=== PATIENT | male | born 1965 | race Hispanic/Latino ===

== ENCOUNTER 2017-05-17 19:58 | Emergency (ER) | payer BC ==
[2017-05-17 20:08] VITALS: BP 122/99; PULSE 80; RESP 15; TEMP 97.1; O2SAT 100
[2017-05-17] MEDS ORDERED: TDAP Vaccine 0.5 mL Syr IM ONE (20:28)
[2017-05-17] MEDS ORDERED: Lidocaine 2% w Epi 1:100,000 Inj IJ ONE (20:29)
--- NOTE | 2017-05-17 20:34 | ED PDOC ---
Upper Extremity Pain/Injury Chief Complaint (Provider): TERRELLE laceration History Per: Patient History/Exam Limitations: no limitations Onset/Duration Of Symptoms: Hrs Current Symptoms Are (Timing): Still Present Severity: Moderate Pain Scale Rating Of: 3 Elbow (Pic): 1 - Tenderness Exacerbating Factor(s): Nothing Additional Complaint(s): 51 y/o male with no significant medical history presenting to ED this evening with cc of falling as he was attempting to get out of the shower, landed on a wine glass, suffering a laceration to his left arm. Reports he was in the so he applied pressure on the site to help it to stop bleeding then wrapped his arm up and came to the emergency room. does not think any glass particles actually penetrated further and does not remember his last tetanus shot. Denies any numbness, tingling or pain . No other complaints otherwise <Elvira Menjivar - Last Filed: 05/17/17 22:57> <Cherrie Adams - Last Filed: 05/19/17 14:50> Time Seen by Provider: 05/17/17 20:14 Chief Complaint (Nursing): Upper Extremity Problem/Injury Supervising Attending Note - Supervising Attending Note The Documented history was done by the: Physician Clinical Systems Educator, Attending Physician The documented physical exam was done by the: Physician Clinical Systems Educator, Attending Physician The documented procedures were done by the: Physician Clinical Systems Educator (under my supervision) - Attestation: I have personally seen and examined this patient.: Yes I have fully participated in the care of the patient.: Yes I have reviewed all pertinent clinical information: Yes <Cherrie Adams - Last Filed: 05/19/17 14:50> Past Medical History Vital Signs: Last Vital Signs Temp 97.1 F L 05/17/17 20:04 Pulse 80 05/17/17 20:04 Resp 15 05/17/17 20:04 BP 122/99 H 05/17/17 20:04 Pulse Ox 100 05/17/17 20:04 - Medical History PMH: No Chronic Diseases - Family History Family History: States: No Known Family Hx - Social History Current smoker - smoking cessation education provided: Yes - Immunization History Hx Tetanus Toxoid Vaccination: No (Pt does not recall ) <Elvira Menjivar - Last Filed: 05/17/17 22:57> Vital Signs: Last Vital Signs Temp 97.1 F L 05/17/17 20:04 Pulse 80 05/17/17 20:04 Resp 15 05/17/17 20:04 BP 122/99 H 05/17/17 20:04 Pulse Ox 100 05/17/17 22:57 <BryanCherrie J - Last Filed: 05/19/17 14:50> - Allergies Allergies/Adverse Reactions: Allergies Allergy/AdvReac Type Severity Reaction Status Date / Time No Known Allergies Allergy Verified 05/17/17 20:08 Review of Systems Constitutional: Negative for: Fever, Malaise Cardiovascular: Negative for: Chest Pain, Light Headedness Respiratory: Negative for: Cough, Shortness of Breath Gastrointestinal: Negative for: Nausea, Abdominal Pain Skin: Negative for: Rash Neurological: Negative for: Weakness <Elvira Menjivar - Last Filed: 05/17/17 22:57> Physical Exam - Reviewed Vital Signs Reviewed: Yes - Physical Exam Appears: Positive for: No Acute Distress Skin: Positive for: Warm, Dry Cardiovascular/Chest: Positive for: Regular Rate, Rhythm. Negative for: Edema Respiratory: Positive for: Normal Breath Sounds. Negative for: Decreased Breath Sounds, Accessory Muscle Use Pulses-Carotid (L): 2+ Pulses-Radial (L): 2+ Pulses-Radial (R): 2+ Gastrointestinal/Abdominal: Positive for: Normal Exam, Bowel Sounds, Soft. Negative for: Tenderness Extremity: Positive for: Deformity, Other (about 8cm laceration on left LUE starting from elbow to upper forearm) DTR - Bicep (R): 2+ DTR - Bicep (L): 2+ Neurologic/Psych: Positive for: Alert, buffing wheel former automatic II-XII, Oriented. Negative for: Motor/Sensory Deficits <Elvira Menjivar - Last Filed: 05/17/17 22:57> - ECG O2 Sat by Pulse Oximetry: 100 - Radiology X-Ray: Interpreted by Dc X-Ray Interpretation: Other (no glass particles noted on xray ) <Elvira Menjivar - Last Filed: 05/17/17 22:57> Procedures - Time-Out Type of Procedure: laceration repair Site of Procedure: left forearm Correct Patient: Yes Correct Procedure: Yes Correct Site Marked: Yes Medication Recon: Yes Physician Name: Elvira Amezcuaoo - Laceration/Wound Repair Left Upper Arm Wound Length (cm): 8 Wound's Depth, Shape: superficial, irregular Wound Explored: no foreign body removed Irrigated w/ Saline (ccs): 20 Betadine Prep?: No Anesthesia: Lidocaine w/ Epi Volume Anesthetic (ccs): 20 Wound Debrided: minimal Wound Repaired With: Sutures Suture Size/Type: 5:0 Number of Sutures: 6 Layer Closure?: No Wound Complexity: Simple Sterile Dressing Applied?: Yes Splint Applied?: No Sling Applied?: No <Elvira Menjivar - Last Filed: 05/17/17 22:57> Disposition - Patient ED Disposition Is Patient to be Admitted: No - Disposition Disposition: Routine/Home Disposition Time: 21:55 <Elvira Menjivar - Last Filed: 05/17/17 22:57> <Cherrie Adams - Last Filed: 05/19/17 14:50> - Clinical Impression Clinical Impression: Laceration - Disposition Referrals: [facility] [Outside] [facility] [Outside] Condition: GOOD Additional Instructions: Please keep wound clean and dry Remove the dressing after 24 hours Apply neosporin or bacitracin twice a day. follow up with your PCP or return in 48 hours for wound check Return to ER immediately for bleeding, wound opening, fever, discharge or any other worrisome symptoms Instructions: Care For Your Stitches (ED), Laceration (ED), Care For Your Absorbable Stitches (ED) Print Language: DOMINICAN
[2017-05-17] MEDS ORDERED: Lidocaine 2% Inj (20ml) ONE (20:44)
[2017-05-17] MEDS ORDERED: Hydrogen Peroxide 3% Soln (480ml) TP ONE (22:13)
--- NOTE | 2017-05-18 15:00 | RAD ---
PROCEDURE: Radiographs of the left elbow. HISTORY: lacration r/o glass COMPARISON: No prior. FINDINGS: BONES: Probable degenerative changes on with spurring of the coronoid process of the ulna. JOINTS: Normal. No osteoarthritis. SOFT TISSUES: No definitive radiopaque foreign body identified. Note that if further evaluation is required, consider followup CT scan. JOINT EFFUSION: None. OTHER FINDINGS: None IMPRESSION: No evidence of acute displaced fracture nor dislocation. Suspect degenerative changes arising from the coronoid process of the ulna. No definitive radiopaque foreign body seen however consider followup CT scan if further evaluation is required. Note this report was placed in PA review folder for followup.
== END 2017-05-17 22:30 | disposition home or self-care (01) ==
LOC: H.ER 19:58
DX: S51.812A Laceration without foreign body of left forearm, initial encounter (principal); W25.XXXA Contact with sharp glass, initial encounter; Y92.002 Bathroom of unspecified non-institutional (private) residence as the place of occurrence of the external cause

== ENCOUNTER 2018-02-02 15:33 | Emergency (ER) | payer BC ==
[2018-02-02 16:25] VITALS: BP 106/69; PULSE 88; RESP 18; TEMP 97.8; O2SAT 99
[2018-02-02] MEDS ORDERED: Mineral Oil Enema 135 ml PR STA (18:45)
--- NOTE | 2018-02-02 18:48 | ED PDOC ---
HPI: General Adult Time Seen by Provider: 02/02/18 18:42 Chief Complaint (Nursing): GI Problem Chief Complaint (Provider): constipation Additional Complaint(s): 52-year-old male presents to emergency department complaining of constipation for 2 days. Patient has rectal pain and feels that something may be stuck in rectal region. He denies fever or chills, no rectal bleeding, nausea or vomiting. PMD: Dr. Marte Past Medical History Reviewed: Historical Data, Nursing Documentation, Vital Signs Vital Signs: Last Vital Signs Temp 97.8 F 02/02/18 16:22 Pulse 88 02/02/18 16:22 Resp 18 02/02/18 16:22 BP 106/69 02/02/18 16:22 Pulse Ox 99 02/02/18 20:06 - Medical History PMH: No Chronic Diseases - Family History Family History: States: No Known Family Hx - Living Arrangements Living Arrangements: With Family - Social History Current smoker - smoking cessation education provided: Yes Alcohol: > 2 Drinks/Day Drugs: Cannabis - Allergies Allergies/Adverse Reactions: Allergies Allergy/AdvReac Type Severity Reaction Status Date / Time No Known Allergies Allergy Verified 05/17/17 20:08 Review of Systems ROS Statement: Except As Marked, All Systems Reviewed And Found Negative Constitutional: Negative for: Fever, Chills Respiratory: Negative for: Cough, Shortness of Breath Gastrointestinal: Positive for: Constipation, Rectal Pain. Negative for: Nausea , Vomiting, Abdominal Pain, Diarrhea, Melena, Hematochezia, Hematemesis Genitourinary Male: Negative for: Dysuria Physical Exam - Reviewed Nursing Documentation Reviewed: Yes Vital Signs Reviewed: Yes - Physical Exam Appears: Positive for: Well, Non-toxic, No Acute Distress Skin: Negative for: Rash Eye Exam: Positive for: Normal appearance Cardiovascular/Chest: Positive for: Regular Rate, Rhythm Respiratory: Positive for: Normal Breath Sounds Gastrointestinal/Abdominal: Positive for: Soft. Negative for: Tenderness Rectal: Positive for: Other (large piece of stool noted just external to anus, normal rectal tone no massess or hemorrhoids, soft stool noted in rectal vault) Extremity: Positive for: Normal ROM Neurologic/Psych: Positive for: Alert, Oriented - ECG O2 Sat by Pulse Oximetry: 99 Pulse Ox Interpretation: Normal Medical Decision Making Medical Decision Makin-year-old male with rectal pain and constipation Plan: Fleets enema Rectal suppository Large piece of stool was removed from external anus area. Patient was then given fleets enema and rectal suppository and he had substantial bowel movement in bathroom of ED. Patient states he feels much better. He was instructed to follow high fiber diet and to take take OTC constipaton meds as needed. Advised PMD follow up in 2-3 days. Disposition - Clinical Impression Clinical Impression: Constipation - Patient ED Disposition Is Patient to be Admitted: No Counseled Patient/Family Regarding: Diagnosis, Need For Followup, Rx Given - Disposition Referrals: Mike Marte MD [Family Provider] - Disposition: Routine/Home Disposition Time: 19:39 Condition: STABLE Additional Instructions: Follow dietary instructions. Use [id number] MiraLAX powder daily to increase fiber intake. Use [id number] fleets enema and rectal suppositories as needed for constipation. Follow-up with primary doctor. Instructions: High Fiber Diet, Constipation, Adult (DC) Forms: [employer] (Welsh)
== END 2018-02-02 20:33 | disposition home or self-care (01) ==
LOC: H.ER 15:33
DX: K59.00 Constipation, unspecified (principal); F17.200 Nicotine dependence, unspecified, uncomplicated; K62.89 Other specified diseases of anus and rectum

== ENCOUNTER 2018-04-16 16:05 | Emergency (ER) | payer BC ==
[2018-04-16 16:21] VITALS: O2SAT 99
[2018-04-16] MEDS ORDERED: Multivitamin (MVI) 10 ML, Thiamine 100 MG, Folic Acid 1 MG in Sodium Chloride 0.9% 1,00... IV ONE (16:35)
--- NOTE | 2018-04-16 16:37 | ED PDOC ---
HPI: Chest Pain Time Seen by Provider: 04/16/18 16:31 Chief Complaint (Nursing): Palpitations Chief Complaint (Provider): chest pain History Per: Patient Onset/Duration Of Symptoms: Hrs (since 9am) Current Symptoms Are (Timing): Still Present Quality: Pressure Associated Symptoms: Dyspnea. denies: Nausea, Diaphoresis, Syncope Exacerbating Factors: None Additional Complaint(s): LEfT sided chest pain radiating to LEFT arm nonexertional constant worsening since onset Assoc dyspnea, mild Admits increased stress due to very sick mother at the home. Also admits to regular heavy drinking and cannabis use. PMD Dr Marte. Against Medical Advice - AMA Patient Left Against Medical Advice: The patient declines admission to the hospital and wishes to leave the Emergency Department. This action is against my medical advice. This decision was made with informed refusal. The patient was told that admission to the hospital is necessary. Explanation of the reasons why were discussed. The risks of leaving were explained to the patient and include, but are not limited to, worsening of known or currently unknown conditions, permanent disability and from undiagnosed or untreated conditions. The patient has the capacity to make this informed decision and understands my explanation of the current medical problem and risks of leaving. The patient voluntarily accepts these risks and signed an AMA form documenting our conversation. The patient was given the opportunity to ask questions and reconsider. The patient was encouraged to return to the Emergency Department at any time for further care. Past Medical History Reviewed: Historical Data, Nursing Documentation, Vital Signs Vital Signs: Last Vital Signs Temp 98.3 F 04/16/18 16:18 Pulse 68 04/16/18 16:50 Resp 16 04/16/18 16:18 BP 109/72 04/16/18 16:18 Pulse Ox 99 04/16/18 20:49 - Medical History PMH: No Chronic Diseases - Surgical History Surgical History: No Surg Hx - Family History Family History: States: No Known Family Hx - Social History Current smoker - smoking cessation education provided: Yes Alcohol: > 2 Drinks/Day Drugs: Cannabis - Allergies Allergies/Adverse Reactions: Allergies Allergy/AdvReac Type Severity Reaction Status Date / Time No Known Allergies Allergy Verified 05/17/17 20:08 BRY Risk Score for UA/NSTEMI - BRY Risk Score Age > 64: NO 3 or more CAD Risk Factors: YES Known CAD (Stenosis greater than 50%): NO Aspirin use in past 7 days: NO Severe Angina: NO EKG ST changes greater than 0.5mm: NO Positive Cardiac Marker: NO BRY Score: 1 Risk %: 5% Review of Systems ROS Statement: Except As Marked, All Systems Reviewed And Found Negative (and as per HPI) Constitutional: Negative for: Fever, Chills Cardiovascular: Positive for: Chest Pain, Light Headedness. Negative for: Palpitations, Edema Respiratory: Positive for: Shortness of Breath. Negative for: Cough, Pleuritic Pain Physical Exam - Reviewed Nursing Documentation Reviewed: Yes Vital Signs Reviewed: Yes - Physical Exam Appears: Positive for: Non-toxic, No Acute Distress Head Exam: Positive for: ATRAUMATIC, NORMOCEPHALIC Skin: Positive for: Warm, Dry Eye Exam: Positive for: EOMI, PERRL, Conjunctival injection ENT: Positive for: Pharynx Is (clear), Other (tacky mucus membranes, alcohol on breath) Neck: Positive for: Painless ROM, Supple Cardiovascular/Chest: Positive for: Regular Rate, Rhythm, Chest Non Tender. Negative for: Murmur Respiratory: Positive for: Rhonchi (faint diffuse) Gastrointestinal/Abdominal: Positive for: Soft. Negative for: Tenderness Back: Positive for: Normal Inspection. Negative for: Decreased ROM Extremity: Positive for: Normal ROM. Negative for: Pedal Edema, Deformity Lymphatic: Negative for: Adenopathy Neurologic/Psych: Positive for: Alert. Negative for: Motor/Sensory Deficits - Laboratory Results Result Diagrams: 04/16/18 16:42 04/16/18 17:47 Urine dip results: Negative for: Leukocyte Esterase, Blood, Nitrate, Ketones, Glucose, Bilirubin, Protein - ECG ECG: Positive for: Interpreted By Ks ECG Rhythm: Positive for: Normal ST Segment, Sinus Rhythm, Right Bundle Branch Block O2 Sat by Pulse Oximetry: 99 Pulse Ox Interpretation: Normal Medical Decision Making Medical Decision Making: Time: 1841 CXR RESULTS FINDINGS: LINES AND TUBES: None. LUNG AND PLEURA: The lungs are well inflated and clear. No focal consolidation. HEART AND MEDIASTINUM: The heart is not enlarged. The hilar and mediastinal contours are within normal limits. SKELETAL STRUCTURES: The bony structures are within normal limits for the patient's age. VISUALIZED UPPER ABDOMEN: Normal. OTHER FINDINGS: None. IMPRESSION: No active pulmonary disease. Labs demonstrate elevated BAL. No emergently significant lab abnormalities 52yo heavy smoker and alcohol dependence reporting anginal-type chest pain. Needs hospitalization for serial enzymes to r/o ACS. DW Dr Mendez FP resident admitting for PMD Dr Marte. 1030p Pt reports he wants to leave. Concerns addressed, and risks/benefits discussed, but patient wants to leave anyway. AMA signed. Scribe Attestation: Documented by Jayden Orellana, acting as a scribe for Dr. Cherrie Adams. Provider Scribe Attestation: All medical record entries made by the Scribe were at my direction and personally dictated by me. I have reviewed the chart and agree that the record accurately reflects my personal performance of the medical decision making for this patient. I have also personally directed, reviewed, and agree with the discharge instructions and disposition. Disposition - Clinical Impression Clinical Impression: Chest pain, Alcohol abuse Counseled Patient/Family Regarding: Studies Performed, Diagnosis - Disposition Disposition: Against Medical Advice Disposition Time: 19:00 Condition: UNKNOWN
[2018-04-16 17:24] LABS: BASO % 0.8 % (0.0-2.0); EOS # 0.2 K/uL (0.0-0.7); EOS % 2.9 % (0.0-4.0); HEMOGLOBIN 15.7 g/dL (12.0-18.0); LYMPH # 2.4 K/uL (1.0-4.3); LYMPH % 38.9 % (20.0-40.0); MEAN CELL VOLUME 104.1 fl (80.0-94.0); MEAN CORPUSCULAR HEMOGLOBIN 35.5 pg (27.0-31.0); MEAN CORPUSCULAR HGB CONC 34.1 g/dL (33.0-37.0); MEAN PLATELET VOLUME 8.2 fl (7.2-11.7); MONO # 0.6 K/uL (0.0-0.8); MONO % 9.1 % (0.0-10.0); NEUT % 48.3 % (50.0-75.0); RBC 4.42 Mil/uL (4.40-5.90); RED CELL DISTRIBUTION WIDTH 13.1 % (11.5-14.5); WHITE BLOOD COUNT 6.2 K/uL (4.8-10.8)
[2018-04-16 18:05] LABS: BARBITURATES, UR NEGATIVE (NEGATIVE); BENZODIAZEPINES, UR NEGATIVE (NEGATIVE); OPIATES, UR NEGATIVE (NEGATIVE); PHENCYCLIDINE, UR NEGATIVE (NEGATIVE)
[2018-04-16 18:44] LABS: ALB/GLOB RATIO 1.5 (1.0-2.1); ALBUMIN 4.1 g/dL (3.5-5.0); ALT/SGPT 50 U/L (21-72); AST/SGOT 64 U/L (17-59); BLOOD UREA NITROGEN 8 mg/dl (9-20); CALCIUM 8.4 mg/dL (8.4-10.2); GFR AFRICAN-AMERICAN > 60; GFR NON-AFRICAN AMERICAN > 60
--- NOTE | 2018-04-16 18:44 | RAD ---
HISTORY: COMPARISON: No prior. TECHNIQUE: Chest PA and lateral FINDINGS: LINES AND TUBES: None. LUNG AND PLEURA: The lungs are well inflated and clear. No focal consolidation. HEART AND MEDIASTINUM: The heart is not enlarged. The hilar and mediastinal contours are within normal limits. SKELETAL STRUCTURES: The bony structures are within normal limits for the patient's age. VISUALIZED UPPER ABDOMEN: Normal. OTHER FINDINGS: None. IMPRESSION: No active pulmonary disease.
--- NOTE | 2018-04-16 21:21 | CP.PCM.HP ---
Past Patient History - Infectious Disease Hx of Infectious Diseases: None - Past Social History Alcohol: > 2 Drinks/Day Drugs: Cannabis - PSYCHIATRIC Hx Substance Use: No - SURGICAL HISTORY Hx Surgeries: No - ANESTHESIA Hx Anesthesia: No Hx Anesthesia Reactions: No Meds Allergies/Adverse Reactions: Allergies Allergy/AdvReac Type Severity Reaction Status Date / Time No Known Allergies Allergy Verified 05/17/17 20:08 Results - Vital Signs Recent Vital Signs: Last Vital Signs Temp 98.3 F 04/16/18 16:18 Pulse 68 04/16/18 16:50 Resp 16 04/16/18 16:18 BP 109/72 04/16/18 16:18 Pulse Ox 99 04/16/18 20:49 - Labs Result Diagrams: 04/16/18 16:42 04/16/18 17:47 Labs: Laboratory Results - last 24 hr 04/16/18 04/16/18 04/16/18 16:42 17:30 17:47 WBC 6.2 RBC 4.42 Hgb 15.7 Hct 46.0 MCV 104.1 H MCH 35.5 H MCHC 34.1 RDW 13.1 Plt Count 170 MPV 8.2 Neut % (Auto) 48.3 L Lymph % (Auto) 38.9 [place] % (Auto) 9.1 Eos % (Auto) 2.9 Baso % (Auto) 0.8 Neut # (Auto) 3.0 Lymph # (Auto) 2.4 [place] # (Auto) 0.6 Eos # (Auto) 0.2 Baso # (Auto) 0.0 Sodium 145 Potassium 3.7 Chloride 106 Carbon Dioxide 28 Anion Gap 15 BUN 8 L Creatinine 0.8 Est GFR ( Amer) > 60 Est GFR (Non-Af Amer) > 60 Random Glucose 87 Calcium 8.4 Magnesium 2.1 Total Bilirubin 1.0 AST 64 H ALT 50 Alkaline Phosphatase 59 Troponin I < 0.0120 Total Protein 7.0 Albumin 4.1 Globulin 2.8 Albumin/Globulin Ratio 1.5 Urine Opiates Screen Negative Urine Methadone Screen Negative Ur Barbiturates Screen Negative Ur Phencyclidine Scrn Negative Ur Amphetamines Screen Negative U Benzodiazepines Scrn Negative U Oth Cocaine Metabols Negative U Cannabinoids Screen Positive H Alcohol, Quantitative 335 H*
[2018-04-17 01:05] VITALS: BP 122/78; PULSE 76; RESP 18; TEMP 98.5
--- NOTE | 2018-04-17 16:25 | CARD ---
APPROVED REPORT EKG Measurement Heart [id number] <Conclusion> Normal sinus rhythm Possible Left atrial enlargement Left axis deviation Incomplete right bundle branch block Abnormal ECG
== END 2018-04-16 22:40 | disposition left against medical advice (07) ==
LOC: H.ER 16:05 → H.ERHOLD 21:02 → UNDOADMOB 21:02 → H.ER 22:40
DX: F10.20 Alcohol dependence, uncomplicated (principal); R07.89 Other chest pain; F17.200 Nicotine dependence, unspecified, uncomplicated
CPT/HCPCS: 71046; 80053; 83735; 84484; 85025; 93005; 96374; 99284; G0480; J3411; J7030

== ENCOUNTER 2018-04-21 00:18 | Observation (INO) | payer BC ==
--- NOTE | 2018-04-21 01:11 | ED PDOC ---
HPI: Chest Pain Time Seen by Provider: 04/21/18 00:39 Chief Complaint (Nursing): Chest Pain Chief Complaint (Provider): Chest Pain History Per: Patient History/Exam Limitations: no limitations Onset/Duration Of Symptoms: Days (x5 days), Persistent Current Symptoms Are (Timing): Still Present Associated Symptoms: denies: Nausea, Diaphoresis Additional Complaint(s): 52 year old male presents to ED with complaints of persistent left-sided chest pain x5 days and has no past medical history. Patient notes that he was seen in ED 5 days ago for the same complaint and was to be admitted for observation, but was unable to stay at that time. Patient states that he returns to ED now as he is able to stay and because chest pain has persisted. Notes radiation of pain to left arm. (-) nausea, vomiting, or diaphoresis. Patient denies illicit drug use with the exception of marijuana, admits to alcohol use earlier today, and confirms he smokes 1 pack per day. PCP: Rosanna Past Medical History Reviewed: Historical Data, Nursing Documentation, Vital Signs Vital Signs: Last Vital Signs Temp 98.5 F 04/21/18 12:19 Pulse 83 04/21/18 12:19 Resp 18 04/21/18 12:19 BP 120/77 04/21/18 12:19 Pulse Ox 98 04/21/18 12:19 - Medical History PMH: No Chronic Diseases - Surgical History Surgical History: No Surg Hx - Family History Family History: States: Unknown Family Hx - Living Arrangements Living Arrangements: With Family - Social History Current smoker - smoking cessation education provided: Yes Ex-Smoker (has not smoked in the last 12 months): No Alcohol: Other ((+) drinker) Drugs: Cannabis - Home Medications Home Medications: Ambulatory Orders Medication Instructions Recorded No Known Home Med 04/21/18 - Allergies Allergies/Adverse Reactions: Allergies Allergy/AdvReac Type Severity Reaction Status Date / Time No Known Allergies Allergy Verified 05/17/17 20:08 BRY Risk Score for UA/NSTEMI - BRY Risk Score Age > 64: NO Known CAD (Stenosis greater than 50%): NO EKG ST changes greater than 0.5mm: NO BRY Score: 0 Risk %: 5% Curb-65 Severity Score - CURB-65 Severity Score Confusion: No Respiratory Rate greater than/equal to 30: No Systolic BP <90 or Diastolic BP less than/equal 60mmHg: No Age >64: No Curb-65 Score: 0 Percentage 30-day mortality: 0.6% Wells Criteria for PE - Wells Criteria for Pulmonary Embolism Clinical Signs and Symptoms of DVT: No P.E is #1 Diagnosis, or Equally Likely: No Heart Rate >100: No Immobilization at least 3 days;Surgery previous 4 weeks: No Previous, objectively diagnosed PE or DVT: No Hemoptysis: No Malignancy w/treatment within 6 months, or palliative: No Total Score: 0 Review of Systems ROS Statement: Except As Marked, All Systems Reviewed And Found Negative Constitutional: Negative for: Sweats Cardiovascular: Positive for: Chest Pain (left-sided chest pain) Gastrointestinal: Negative for: Nausea, Vomiting Musculoskeletal: Positive for: Arm Pain (chest pain radiates to left arm) Physical Exam - Reviewed Nursing Documentation Reviewed: Yes Vital Signs Reviewed: Yes - Physical Exam Appears: Positive for: Non-toxic, No Acute Distress Head Exam: Positive for: ATRAUMATIC, NORMOCEPHALIC Skin: Positive for: Normal Color, Warm, Dry Eye Exam: Positive for: Normal appearance Cardiovascular/Chest: Positive for: Regular Rate, Rhythm. Negative for: Murmur Respiratory: Positive for: Normal Breath Sounds. Negative for: Respiratory Distress Gastrointestinal/Abdominal: Positive for: Normal Exam, Soft. Negative for: Tenderness Back: Positive for: Normal Inspection Extremity: Positive for: Normal ROM. Negative for: Deformity Neurologic/Psych: Positive for: Alert, Oriented. Negative for: Motor/Sensory Deficits - Laboratory Results Result Diagrams: 04/21/18 01:23 04/21/18 01:23 - ECG ECG Rhythm: Positive for: Normal QRS, Normal ST Segment, Sinus Rhythm Rate: 68 (taken at 0024 04/21/2018) O2 Sat by Pulse Oximetry: 96 (RA) Pulse Ox Interpretation: Normal Medical Decision Making Medical Decision Makin Initial impression: 52 year old male with chest pain Initial plan: * EKG * EtOH serum * Labs * UDrug screen * Trop I * PTT/PT 0059 Patient will be placed on OBS status for cardiac risk factors and left-sided chest pain. OBS TELE as discussed with Dr. Mendez (admitting resident). 0200 Labs reviewed: no clinically significant abnormalities. Scribe Attestation: Documented by Jovana Ramirez acting as a scribe for Manuel Marcos MD. MD Demarco Attestation: All medical record entries made by the Dav were at my direction and personally dictated by me. I have reviewed the chart and agree that the record accurately reflects my personal performance of the history, physical exam, medical decision making, and the department course for this patient. I have also personally directed, reviewed, and agree with the discharge instructions and disposition. Disposition - Clinical Impression Clinical Impression: Chest pain - Patient ED Disposition Is Patient to be Admitted: Yes - Disposition Disposition Time: 00:59 Condition: FAIR - Pt Status Changed To: Hospital Disposition Of: Observation (OBS TELE)
[2018-04-21 01:40] LABS: EOS # 0.1 K/uL (0.0-0.7); EOS % 1.7 % (0.0-4.0); LYMPH # 1.5 K/uL (1.0-4.3); LYMPH % 36.3 % (20.0-40.0); MEAN CELL VOLUME 103.5 fl (80.0-94.0); MEAN CORPUSCULAR HEMOGLOBIN 35.9 pg (27.0-31.0); MEAN CORPUSCULAR HGB CONC 34.7 g/dL (33.0-37.0); MEAN PLATELET VOLUME 7.2 fl (7.2-11.7); MONO # 0.2 K/uL (0.0-0.8); MONO % 5.6 % (0.0-10.0); NEUT # 2.3 K/uL (1.8-7.0); NEUT % 55.4 % (50.0-75.0); RBC 4.19 Mil/uL (4.40-5.90); RED CELL DISTRIBUTION WIDTH 13.1 % (11.5-14.5); WHITE BLOOD COUNT 4.2 K/uL (4.8-10.8)
[2018-04-21 01:50] LABS: BLOOD UREA NITROGEN 13 mg/dl (9-20); CALCIUM 8.7 mg/dL (8.4-10.2); GFR AFRICAN-AMERICAN > 60; GFR NON-AFRICAN AMERICAN > 60
[2018-04-21 01:53] LABS: INR 0.9 (0.9-1.2); PARTIAL THROMBOPLASTIN TIME 28.2 Seconds (25.6-37.1); PROTHROMBIN TIME 9.9 Seconds (9.8-13.1)
--- NOTE | 2018-04-21 02:19 | CP.PCM.HP ---
History of Present Illness - History of Present Illness History of Present Illness: 52 yr old M presents with complaint acute on chronic chest pain x 1 week. Denies any PMHx. Denies SOB, sweating, one sided weakness, headache, nausea, vomiting, diarrhea or weakness. Chest pain is pressure like, 7/10, exacerbated by pressing on his chest, radiates down left arm all the way down left leg. Reports he came to ED for similar symptoms on 04/16/18 but left against medical advice. Admits to drinking 2-3 shots of lyubov cheng and vodka prior to arrival to ED. Denies hx of alcohol withdrawal seizures. PMD: Dr. Chilel PMHx: tobacco and Etoh abuse SurgHx: tonsillectomy FMHx: mother has dementia, father at 84 from stroke complications SocHx: current smoker 5 cig daily (has 39 pack yrs), current Etoh abuse-drinks 2 -3 shot lyubov cheng whiskey/vodka daily; occasional cannabis use, lives alone, no siblings Medications: none Allergies: NKDA ED course: BP 116/71 mmHg, HR 77, Resp 16, O2 sat 96% on room air, Temp 97.7F -EKG: NSR at 68bpm, no significant ST-T changes -troponin negative -CBC: WBC 4.2, H/H 15/ 43.3, Hct 43.3, plts 145 -PT 9.9, PTT 28.2, INR 0.9 -CMP: Na 143, K+ 3.3, Cl 100, HCO3 23, anion gap 23, BUN 13/Cr 0.7 -serum alcohol 392 -ED treatment: none Present on Admission - Present on Admission Any Indicators Present on Admission: No History of DVT/PE: No History of Uncontrolled Diabetes: No Urinary Catheter: No Decubitus Ulcer Present: No History Surgical Site Infection Following: None Review of Systems - Constitutional Constitutional: absent: Chills, Weakness - EENT Eyes: absent: Change in Vision Ears: absent: Ear Discharge, Dizziness Nose/Mouth/Throat: absent: Nasal Congestion, Nasal Discharge - Cardiovascular Cardiovascular: Chest Pain. absent: Dyspnea, Syncope - Respiratory Respiratory: absent: Cough, Hemoptysis - Gastrointestinal Gastrointestinal: absent: Abdominal Pain, Dysphagia, Heartburn, Nausea, Vomiting - Genitourinary Genitourinary: absent: Difficulty Urinating, Dysuria - Musculoskeletal Musculoskeletal: absent: Abnormal Gait, Numbness, Tingling - Integumentary Integumentary: absent: Bleeding Lesions - Neurological Neurological: absent: Convulsions, Disequilibrium, Headaches, Weakness Past Patient History - Infectious Disease Hx of Infectious Diseases: None - Past Social History Alcohol: Other ((+) drinker) Drugs: Cannabis - PSYCHIATRIC Hx Substance Use: No - SURGICAL HISTORY Hx Surgeries: No - ANESTHESIA Hx Anesthesia: No Hx Anesthesia Reactions: No Meds Allergies/Adverse Reactions: Allergies Allergy/AdvReac Type Severity Reaction Status Date / Time No Known Allergies Allergy Verified 05/17/17 20:08 Physical Exam - Constitutional Appears: No Acute Distress, Other (strong alcohol breath) - Head Exam Head Exam: ATRAUMATIC, NORMOCEPHALIC - Eye Exam Eye Exam: EOMI, PERRL - ENT Exam ENT Exam: Mucous Membranes Moist - Neck Exam Neck exam: Positive for: Full Rom. Negative for: Lymphadenopathy - Respiratory Exam Respiratory Exam: Clear to Auscultation Bilateral, NORMAL BREATHING PATTERN. absent: Rales, Rhonchi - Cardiovascular Exam Cardiovascular Exam: REGULAR RHYTHM, +S1, +S2 - GI/Abdominal Exam GI & Abdominal Exam: Normal Bowel Sounds, Soft. absent: Tenderness - Extremities Exam Extremities exam: Positive for: full ROM, pedal pulses present. Negative for: calf tenderness, pedal edema, tenderness - Back Exam Back exam: absent: CVA tenderness (L), CVA tenderness (R) - Neurological Exam Neurological exam: Alert, CN II-XII Intact (grossly intact), Oriented x3 Additional comments: CIWA score 0 - Psychiatric Exam Psychiatric exam: Normal Affect, Normal Mood - Skin Skin Exam: Dry, Normal Color, Warm Results - Vital Signs Recent Vital Signs: Last Vital Signs Temp 97.7 F 04/21/18 00:38 Pulse 68 04/21/18 02:15 Resp 16 04/21/18 00:38 BP 116/71 04/21/18 00:38 Pulse Ox 96 04/21/18 02:15 - Labs Result Diagrams: 04/21/18 01:23 04/21/18 01:23 Labs: Laboratory Results - last 24 hr 04/21/18 04/21/18 04/21/18 01:23 01:23 01:23 WBC 4.2 L RBC 4.19 L Hgb 15.0 Hct 43.3 MCV 103.5 H MCH 35.9 H MCHC 34.7 RDW 13.1 Plt Count 145 MPV 7.2 Neut % (Auto) 55.4 Lymph % (Auto) 36.3 [place] % (Auto) 5.6 Eos % (Auto) 1.7 Baso % (Auto) 1.0 Neut # (Auto) 2.3 Lymph # (Auto) 1.5 [place] # (Auto) 0.2 Eos # (Auto) 0.1 Baso # (Auto) 0.0 PT 9.9 INR 0.9 APTT 28.2 Sodium 143 Potassium 3.3 L Chloride 100 Carbon Dioxide 23 Anion Gap 23 H BUN 13 Creatinine 0.7 L Est GFR ( Amer) > 60 Est GFR (Non-Af Amer) > 60 Random Glucose 156 H Calcium 8.7 Troponin I < 0.0120 Alcohol, Quantitative 392 H* Assessment & Plan - Assessment and Plan (Free Text) Assessment: 52 yr old M admitted for recurrent chest pain. 1. Chest pain -acute on chronic, recurrent, r/o ACS vs anxiety -troponin negative x 1 -EKG: NSR at 68bpm, no significant ST-T changes -admit to tele -f/u serial troponin -heart healthy diet 2. Alcohol abuse -chronic -serum alcohol level 392 -CIWA score 0 -NS1L with multivitamin, thiamine 100mg, Folic acid 1mg -monitor for alcohol withdrawal -Ativan 1mg IVP Q6 PRN for alcohol withdrawal symptoms 3. Hypokalemia -acute, serum K+ 3.3 -Potassium Cl 20 meq PO BID 4. DVT prophylaxis - SCD's, Lovenox 40 mg SC QD - Date & Time Date: 04/21/18 Time: 02:30
[2018-04-21] MEDS ORDERED: Multivitamin (MVI) 10 ML, Thiamine 100 MG, Folic Acid 1 MG in Sodium Chloride 0.9% 1,00... IV ONE ×2 (03:07→03:12)
[2018-04-21] MEDS: Potassium Chloride 20 mEq ER Tab PO SCH ×2 (04:10→09:19)
[2018-04-21] MEDS ORDERED: Pneumococcal 23-Valent Vaccine IM ONE (06:00)
[2018-04-21 08:21] VITALS: RESP 18
[2018-04-21] MEDS ORDERED: Pantoprazole 40 mg EC Tab PO SCH (09:00)
[2018-04-21] MEDS ORDERED: Enoxaparin 40 mg Syringe SC SCH (09:00)
[2018-04-21 09:19] LABS: BARBITURATES, UR NEGATIVE (NEGATIVE); BENZODIAZEPINES, UR NEGATIVE (NEGATIVE); OPIATES, UR NEGATIVE (NEGATIVE); PHENCYCLIDINE, UR NEGATIVE (NEGATIVE)
--- NOTE | 2018-04-21 09:27 | CP.PCM.CON ---
History of Present Illness - History of Present Illness History of Present Illness: This 52-year-old man came into the emergency room after experiencing right-sided chest pains off and on for almost 2 days prior to coming into the hospital. The patient denies any history of hypertension or diabetes. He has been a smoker smoking a pack of cigarettes a day for number of years. His father, a diabetic and has had coronary stents. The patient himself is fairly active and denies any effort related chest pain or prior myocardial infarction or congestive cardiac failure. Physical examination shows a young man quite alert awake coherent afebrile able to lie virtually flat and carry on a conversation. His heart rate was 68 bpm regular and his blood pressure is 124/74 mmHg. His jugular venous pressure was not elevated and there was no edema over his lower extremity. The pedal pulses were well felt. There were no carotid bruits. There was marked tenderness in the right parasternal area which the patient indicates is similar to his symptom that brought him to the hospital. His first and second heart sounds are normal. There was no murmur or gallop there were no rales. His abdomen was soft and liver and spleen are not palpable. His electrocardiogram showed sinus rhythm with no ST-T abnormalities suggestive of myocardial ischemia. The troponin levels were normal indicating of no myocyte injury. The rest of his labs were noted. Impression: Chest wall pain most likely costochondritis. No evidence of acute coronary syndrome. The patient may be allowed to return home. I have strongly admonished him against smoking. Past Patient History - Infectious Disease Hx of Infectious Diseases: None - Past Medical History & Family History Past Medical History?: No - Past Social History Alcohol: Other ((+) drinker) Drugs: Cannabis - HEMATOLOGICAL/ONCOLOGICAL Hx AIDS: No Hx Human Immunodeficiency Virus (HIV): No - MUSCULOSKELETAL/RHEUMATOLOGICAL Hx Falls: No - PSYCHIATRIC Hx Substance Use: No - SURGICAL HISTORY Hx Surgeries: No - ANESTHESIA Hx Anesthesia: No Hx Anesthesia Reactions: No Meds Allergies/Adverse Reactions: Allergies Allergy/AdvReac Type Severity Reaction Status Date / Time No Known Allergies Allergy Verified 05/17/17 20:08 - Medications Medications: Current Medications Enoxaparin Sodium (Lovenox) 40 mg SC DAILY JOHN PRN Reason: Protocol Last Admin: 04/21/18 09:19 Dose: 40 mg Lorazepam (Ativan) 1 mg IVP Q6 PRN PRN Reason: alcohol withdrawal symptoms Pantoprazole Sodium (Protonix Ec Tab) 40 mg PO DAILY [facility] Last Admin: 04/21/18 09:19 Dose: 40 mg Potassium Chloride (K-Dur 20 Meq Er Tab) 20 meq PO BID [facility] Last Admin: 04/21/18 09:19 Dose: 20 meq Results - Vital Signs Recent Vital Signs: Last Vital Signs Temp 97.5 F L 04/21/18 08:21 Pulse 83 04/21/18 08:21 Resp 18 04/21/18 08:21 BP 126/73 04/21/18 08:21 Pulse Ox 95 04/21/18 08:21 - Labs Result Diagrams: 04/21/18 01:23 04/21/18 01:23 Labs: Laboratory Results - last 24 hr 04/21/18 04/21/18 04/21/18 01:23 01:23 01:23 WBC 4.2 L RBC 4.19 L Hgb 15.0 Hct 43.3 MCV 103.5 H MCH 35.9 H MCHC 34.7 RDW 13.1 Plt Count 145 MPV 7.2 Neut % (Auto) 55.4 Lymph % (Auto) 36.3 [place] % (Auto) 5.6 Eos % (Auto) 1.7 Baso % (Auto) 1.0 Neut # (Auto) 2.3 Lymph # (Auto) 1.5 [place] # (Auto) 0.2 Eos # (Auto) 0.1 Baso # (Auto) 0.0 PT 9.9 INR 0.9 APTT 28.2 Sodium 143 Potassium 3.3 L Chloride 100 Carbon Dioxide 23 Anion Gap 23 H BUN 13 Creatinine 0.7 L Est GFR ( Amer) > 60 Est GFR (Non-Af Amer) > 60 Random Glucose 156 H Calcium 8.7 Troponin I < 0.0120 Urine Opiates Screen Urine Methadone Screen Ur Barbiturates Screen Ur Phencyclidine Scrn Ur Amphetamines Screen U Benzodiazepines Scrn U Oth Cocaine Metabols U Cannabinoids Screen Alcohol, Quantitative 392 H* 04/21/18 08:55 WBC RBC Hgb Hct MCV MCH MCHC RDW Plt Count MPV Neut % (Auto) Lymph % (Auto) [place] % (Auto) Eos % (Auto) Baso % (Auto) Neut # (Auto) Lymph # (Auto) [place] # (Auto) Eos # (Auto) Baso # (Auto) PT INR APTT Sodium Potassium Chloride Carbon Dioxide Anion Gap BUN Creatinine Est GFR ( Amer) Est GFR (Non-Af Amer) Random Glucose Calcium Troponin I Urine Opiates Screen Negative Urine Methadone Screen Negative Ur Barbiturates Screen Negative Ur Phencyclidine Scrn Negative Ur Amphetamines Screen Negative U Benzodiazepines Scrn Negative U Oth Cocaine Metabols Negative U Cannabinoids Screen Positive H Alcohol, Quantitative
--- NOTE | 2018-04-21 10:02 | CARD ---
APPROVED REPORT EKG Measurement Heart [id number] <Conclusion> Normal sinus rhythm Left axis deviation Abnormal ECG
[2018-04-21 12:19] VITALS: BP 120/77; TEMP 98.5
--- NOTE | 2018-04-21 12:31 | CP.PCM.DIS ---
<AskewDuyshivani - Last Filed: 04/21/18 12:38> Provider - Provider Date of Admission: 04/21/18 01:55 Attending physician: Mike Marte MD Primary care physician: Mike Marte MD Consults: Dr. Mcarthur, Cardiology Time Spent in preparation of Discharge (in minutes): 40 Diagnosis - Discharge Diagnosis (1) Costochondritis Status: Acute (2) Alcohol abuse Status: Chronic (3) Positive urine drug screen Status: Chronic Comment: + for Marijuana (04/21/18) Hospital Course - Lab Results Lab Results: Most Recent Lab Values WBC 4.2 K/uL (4.8-10.8) L 04/21/18 01:23 RBC 4.19 Mil/uL (4.40-5.90) L 04/21/18 01:23 Hgb 15.0 g/dL (12.0-18.0) 04/21/18 01:23 Hct 43.3 % (35.0-51.0) 04/21/18 01:23 MCV 103.5 fl (80.0-94.0) H 04/21/18 01:23 MCH 35.9 pg (27.0-31.0) H 04/21/18 01:23 MCHC 34.7 g/dL (33.0-37.0) 04/21/18 01:23 RDW 13.1 % (11.5-14.5) 04/21/18 01:23 Plt Count 145 K/uL (130-400) 04/21/18 01:23 MPV 7.2 fl (7.2-11.7) 04/21/18 01:23 Neut % (Auto) 55.4 % (50.0-75.0) 04/21/18 01:23 Lymph % (Auto) 36.3 % (20.0-40.0) 04/21/18 01:23 [place] % (Auto) 5.6 % (0.0-10.0) 04/21/18 01:23 Eos % (Auto) 1.7 % (0.0-4.0) 04/21/18 01:23 Baso % (Auto) 1.0 % (0.0-2.0) 04/21/18 01:23 Neut # (Auto) 2.3 K/uL (1.8-7.0) 04/21/18 01:23 Lymph # (Auto) 1.5 K/uL (1.0-4.3) 04/21/18 01:23 [place] # (Auto) 0.2 K/uL (0.0-0.8) 04/21/18 01:23 Eos # (Auto) 0.1 K/uL (0.0-0.7) 04/21/18 01:23 Baso # (Auto) 0.0 K/uL (0.0-0.2) 04/21/18 01:23 PT 9.9 Seconds (9.8-13.1) 04/21/18 01: INR 0.9 (0.9-1.2) 04/21/18 01:23 APTT 28.2 Seconds (25.6-37.1) 04/21/18 01:23 Sodium 143 mmol/l (132-148) 04/21/18 01:23 Potassium 3.3 MMOL/L (3.6-5.0) L 04/21/18 01:23 Chloride 100 mmol/L (98-107) 04/21/18 01:23 Carbon Dioxide 23 mmol/L (22-30) 04/21/18 01:23 Anion Gap 23 (10-20) H 04/21/18 01:23 BUN 13 mg/dl (9-20) 04/21/18 01:23 Creatinine 0.7 mg/dl (0.8-1.5) L 04/21/18 01:23 Est GFR ( Amer) > 60 04/21/18 01:23 Est GFR (Non-Af Amer) > 60 04/21/18 01:23 Random Glucose 156 mg/dL (75-110) H 04/21/18 01:23 Calcium 8.7 mg/dL (8.4-10.2) 04/21/18 01:23 Troponin I 0.0130 ng/mL (0.00-0.120) 04/21/18 08:58 Urine Opiates Screen Negative (NEGATIVE) 04/21/18 08:55 Urine Methadone Screen Negative (NEGATIVE) 04/21/18 08:55 Ur Barbiturates Screen Negative (NEGATIVE) 04/21/18 08:55 Ur Phencyclidine Scrn Negative (NEGATIVE) 04/21/18 08:55 Ur Amphetamines Screen Negative (NEGATIVE) 04/21/18 08:55 U Benzodiazepines Scrn Negative (NEGATIVE) 04/21/18 08:55 U Oth Cocaine Metabols Negative (NEGATIVE) 04/21/18 08:55 U Cannabinoids Screen Positive (NEGATIVE) H 04/21/18 08:55 Alcohol, Quantitative 392 mg/dl (0-10) H* 04/21/18 01:23 - Hospital Course Hospital Course: 52 y/o male with PMH of alcohol abuse, and tabacco use admitted for evaluation and treatment of acute on chronic chest pain. ED vs: BP 116/71 mmHg, HR 77, Resp 16, O2 sat 96% on room air, Temp 97.7F. EKG: NSR at 68bpm, no significant ST-T changes. troponin negative x2. Dr. Mcarthur, cardio consulted this morning; agress with chostochondritis, non cardiac chest pain. Patient was seen with Dr. Carroll this morning, pain has improved but still reproducible. Patient was discharged home with instruction to follow up with PMD, smoking cessation and avoid alcohol abuse. ER precautions discussed with patient. Discharge Exam - Head Exam Head Exam: ATRAUMATIC, NORMOCEPHALIC - Eye Exam Eye Exam: Normal appearance, PERRL Pupil Exam: NORMAL ACCOMODATION - ENT Exam ENT Exam: Mucous Membranes Moist - Respiratory Exam Respiratory Exam: Clear to PA & Lateral, UNREMARKABLE - Cardiovascular Exam Cardiovascular Exam: REGULAR RHYTHM, +S1, +S2 Additional comments: Pain on palpation - GI/Abdominal Exam GI & Abdominal Exam: Normal Bowel Sounds, Soft. absent: Tenderness - Extremities Exam Extremities exam: normal inspection - Back Exam Back exam: absent: CVA tenderness (L), CVA tenderness (R) - Neurological Exam Neurological exam: Alert, CN II-XII Intact, Oriented x3, Reflexes Normal - Psychiatric Exam Psychiatric exam: Normal Affect - Skin Skin Exam: Dry, Intact, Normal Color, Warm Discharge Plan - Follow Up Plan Condition: FAIR Disposition: HOME/ ROUTINE Instructions: Costochondritis, Alcohol Abuse and Alcoholism (DC), Effects of Alcohol on Your Health Additional Instructions: Follow up with PMD, Dr. Carroll/ Dr. Marte with in a week Referrals: Mike Marte MD [Primary Care Provider] - <Chris Carroll - Last Filed: 04/23/18 06:37> Provider - Provider Date of Admission: 04/21/18 01:55 Attending physician: Mike Marte MD Primary care physician: Mike Marte MD Hospital Course - Lab Results Lab Results: Most Recent Lab Values WBC 4.2 K/uL (4.8-10.8) L 04/21/18 01:23 RBC 4.19 Mil/uL (4.40-5.90) L 04/21/18 01:23 Hgb 15.0 g/dL (12.0-18.0) 04/21/18 01:23 Hct 43.3 % (35.0-51.0) 04/21/18 01:23 MCV 103.5 fl (80.0-94.0) H 04/21/18 01:23 MCH 35.9 pg (27.0-31.0) H 04/21/18 01: MCHC 34.7 g/dL (33.0-37.0) 04/21/18 01: RDW 13.1 % (11.5-14.5) 04/21/18 01:23 Plt Count 145 K/uL (130-400) 04/21/18 01:23 MPV 7.2 fl (7.2-11.7) 04/21/18 01:23 Neut % (Auto) 55.4 % (50.0-75.0) 04/21/18 01: Lymph % (Auto) 36.3 % (20.0-40.0) 04/21/18 01: [place] % (Auto) 5.6 % (0.0-10.0) 04/21/18 01:23 Eos % (Auto) 1.7 % (0.0-4.0) 04/21/18 01:23 Baso % (Auto) 1.0 % (0.0-2.0) 04/21/18: Neut # (Auto) 2.3 K/uL (1.8-7.0) 04/21/18 01:23 Lymph # (Auto) 1.5 K/uL (1.0-4.3) 04/21/18 01: [place] # (Auto) 0.2 K/uL (0.0-0.8) 04/21/18 01:23 Eos # (Auto) 0.1 K/uL (0.0-0.7) 04/21/18 01:23 Baso # (Auto) 0.0 K/uL (0.0-0.2) 04/21/18 01:23 PT 9.9 Seconds (9.8-13.1) 04/21/18 01:23 INR 0.9 (0.9-1.2) 04/21/18 01:23 APTT 28.2 Seconds (25.6-37.1) 04/21/18 01:23 Sodium 143 mmol/l (132-148) 04/21/18 01:23 Potassium 3.3 MMOL/L (3.6-5.0) L 04/21/18 01:23 Chloride 100 mmol/L (98-107) 04/21/18 01:23 Carbon Dioxide 23 mmol/L (22-30) 04/21/18 01:23 Anion Gap 23 (10-20) H 04/21/18 01:23 BUN 13 mg/dl (9-20) 04/21/18 01:23 Creatinine 0.7 mg/dl (0.8-1.5) L 04/21/18 01:23 Est GFR ( Amer) > 60 04/21/18 01:23 Est GFR (Non-Af Amer) > 60 04/21/18 01:23 Random Glucose 156 mg/dL (75-110) H 04/21/18 01:23 Calcium 8.7 mg/dL (8.4-10.2) 04/21/18 01:23 Troponin I 0.0130 ng/mL (0.00-0.120) 04/21/18 08:58 Urine Opiates Screen Negative (NEGATIVE) 04/21/18 08:55 Urine Methadone Screen Negative (NEGATIVE) 04/21/18 08:55 Ur Barbiturates Screen Negative (NEGATIVE) 04/21/18 08:55 Ur Phencyclidine Scrn Negative (NEGATIVE) 04/21/18 08:55 Ur Amphetamines Screen Negative (NEGATIVE) 04/21/18 08:55 U Benzodiazepines Scrn Negative (NEGATIVE) 04/21/18 08:55 U Oth Cocaine Metabols Negative (NEGATIVE) 04/21/18 08:55 U Cannabinoids Screen Positive (NEGATIVE) H 04/21/18 08:55 Alcohol, Quantitative 392 mg/dl (0-10) H* 04/21/18 01:23 Attending/Attestation - Attestation I have personally seen and examined this patient.: Yes I have fully participated in the care of the patient.: Yes I have reviewed all pertinent clinical information, including history, physical exam and plan: Yes
[2018-04-21 23:54] VITALS: PULSE 68; O2SAT 96
== END 2018-04-21 14:52 | disposition home or self-care (01) ==
LOC: H.ER 00:18 → H.ERHOLD 01:55 → H.TEL 03:29
PROVIDERS: ADMIT Family Medicine; ATTEND Family Medicine
DX: M94.0 Chondrocostal junction syndrome [Tietze] (principal); F10.239 Alcohol dependence with withdrawal, unspecified; F12.90 Cannabis use, unspecified, uncomplicated; F17.210 Nicotine dependence, cigarettes, uncomplicated; Y90.8 Blood alcohol level of 240 mg/100 ml or more; Z81.8 Family history of other mental and behavioral disorders; Z82.3 Family history of stroke; Z83.3 Family history of diabetes mellitus; E87.6 Hypokalemia; R07.89 Other chest pain; Z23 Encounter for immunization
CPT/HCPCS: 80048; 84484; 85025; 85610; 85730; 90732; 93005; 99285; G0009; G0378; G0480; J1650; J2060; J3411; J7030

== ENCOUNTER 2018-08-22 22:21 | Emergency (ER) | payer BC ==
[2018-08-22] MEDS ORDERED: Sodium Chloride 0.9% 1,000 ML IV STA (23:11)
[2018-08-22] MEDS ORDERED: Multivitamin (MVI) 10 ML, Thiamine 100 MG, Folic Acid 1 MG in Dextrose 5%/0.45% NS 1,00... IV ONE (23:12)
[2018-08-22] MEDS ORDERED: Sterile Water 10 ML IV ONE (23:17)
--- NOTE | 2018-08-22 23:32 | ED PDOC ---
HPI: General Adult Time Seen by Provider: 08/22/18 22:50 Chief Complaint (Nursing): GI Problem Chief Complaint (Provider): Vomiting History Per: Patient History/Exam Limitations: no limitations Onset/Duration Of Symptoms: Hrs (today) Current Symptoms Are (Timing): Still Present Additional Complaint(s): Charles Velasquez is a 53 year old male, with no significant past medical history, who presents to the emergency department complaining of multiple episodes of vomiting onset since earlier today. Patient is also complaining of withdrawal symptoms and reports noticing blood in vomit after several episodes. Patient is feeling anxious and states he hasn't been eating well. He admits to drinking alcohol today but states he is going to get detoxed tomorrow. He denies any other medical complaints. PMD: Mike Marte Past Medical History Reviewed: Historical Data, Nursing Documentation, Vital Signs Vital Signs: Last Vital Signs Temp 98.6 F 08/22/18 22:28 Pulse 106 H 08/22/18 22:28 Resp 18 08/22/18 22:28 BP 134/85 08/22/18 22:28 Pulse Ox 100 08/22/18 22:28 - Medical History PMH: No Chronic Diseases Denies: HIV - Surgical History Surgical History: No Surg Hx - Family History Family History: States: Unknown Family Hx - Social History Alcohol: > 2 Drinks/Day - Home Medications Home Medications: Ambulatory Orders Medication Instructions Recorded No Known Home Med 04/21/18 - Allergies Allergies/Adverse Reactions: Allergies Allergy/AdvReac Type Severity Reaction Status Date / Time No Known Allergies Allergy Verified 05/17/17 20:08 Review of Systems ROS Statement: Except As Marked, All Systems Reviewed And Found Negative Gastrointestinal: Positive for: Vomiting, Other (decreased appetite) Psych: Positive for: Anxiety Physical Exam - Reviewed Nursing Documentation Reviewed: Yes Vital Signs Reviewed: Yes - Physical Exam Appears: Positive for: Uncomfortable Head Exam: Positive for: ATRAUMATIC, NORMAL INSPECTION, NORMOCEPHALIC Skin: Positive for: Normal Color, Warm, Dry Eye Exam: Positive for: Normal appearance, EOMI, PERRL Neck: Positive for: Painless ROM Cardiovascular/Chest: Positive for: Regular Rate, Rhythm. Negative for: Murmur Respiratory: Positive for: Normal Breath Sounds. Negative for: Respiratory Distress Gastrointestinal/Abdominal: Positive for: Normal Exam, Soft. Negative for: Tenderness Back: Positive for: Normal Inspection. Negative for: Vertebral Tenderness Extremity: Positive for: Normal ROM (upper and lower extremities). Negative for: Deformity, Swelling Neurologic/Psych: Positive for: Alert, Oriented - Laboratory Results Result Diagrams: 08/22/18 23:50 08/22/18 23:50 - ECG O2 Sat by Pulse Oximetry: 100 (RA) Pulse Ox Interpretation: Normal - Progress Re-evaluation Time: 03:08 Condition: Re-examined, Improved Medical Decision Making Medical Decision Making: Time: 22:50 Initial Impression: Vomiting. Differential includes acute alcohol gastritis, pancreatitis, alcohol withdrawal symptoms w/o seizures Initial Plan: --Type and screen --EKG --Alcohol serum --CMP --Lipase --CBC w/ differential --PTT --PT --Ativan 2 mg IV --Banana bag --Sodium Chloride --Protonix Inj 40 mg IVP --Reglan 10 mg IVP --Reevaluation Scribe Attestation: Documented by Te Daniels, acting as a scribe for Larry Anderson MD. Provider Scribe Attestation: All medical record entries made by the Scribe were at my direction and personally dictated by me. I have reviewed the chart and agree that the record accurately reflects my personal performance of the history, physical exam, medical decision making, and the department course for this patient. I have also personally directed, reviewed, and agree with the discharge instructions and disposition. Disposition - Clinical Impression Clinical Impression: Vomiting, Alcohol dependence with withdrawal - Patient ED Disposition Is Patient to be Admitted: No Counseled Patient/Family Regarding: Studies Performed, Diagnosis, Need For Followup - Disposition Disposition: Routine/Home Disposition Time: 03:08 Condition: IMPROVED Additional Instructions: CHARLES VELASQUEZ, thank you for letting us take care of you today. Your provider was Larry Anderson MD and you were treated for POSS WITHDRAWAL,VOMITING. The emergency medical care you received today was directed at your acute symptoms. If you were prescribed any medication, please fill it and take as directed. It may take several days for your symptoms to resolve. Return to the Emergency Department if your symptoms worsen, do not improve, or if you have any other problems. Please contact your doctor or call one of the physicians/clinics you have been referred to that are listed on the Patient Visit Information form that is included in your discharge packet. Bring any paperwork you were given at discharge with you along with any medications you are taking to your follow up visit. Our treatment cannot replace ongoing medical care by a primary care provider outside of the emergency department. Thank you for allowing the [facility] team to be part of your care today. If you had an X-Ray or CT scan: A Radiologist will review the ED reading if any change in treatment is needed we will contact you. If you had a blood, urine, or wound culture: It will take several days for the results, if any change in treatment is needed we will contact you. If you had an STI test: It will take 48 hours for the results. Please call after 1 week if you have not heard back. Instructions: Nausea and Vomiting, Adult, Alcohol Abuse and Alcoholism (DC)
[2018-08-23 00:01] LABS: BASO % 0.1 % (0.0-2.0); HEMOGLOBIN 17.2 g/dL (12.0-18.0); LYMPH # 0.7 K/uL (1.0-4.3); LYMPH % 6.9 % (20.0-40.0); MEAN CELL VOLUME 97.9 fl (80.0-94.0); MEAN CORPUSCULAR HEMOGLOBIN 33.7 pg (27.0-31.0); MEAN CORPUSCULAR HGB CONC 34.4 g/dL (33.0-37.0); MONO # 0.9 K/uL (0.0-0.8); MONO % 8.1 % (0.0-10.0); NEUT # 9.1 K/uL (1.8-7.0); NEUT % 84.9 % (50.0-75.0); PLATELET COUNT 172 K/uL (130-400); RBC 5.11 Mil/uL (4.40-5.90); RED CELL DISTRIBUTION WIDTH 15.5 % (11.5-14.5); WHITE BLOOD COUNT 10.7 K/uL (4.8-10.8)
[2018-08-23 00:11] LABS: ALB/GLOB RATIO 1.5 (1.0-2.1); ALBUMIN 5.6 g/dL (3.5-5.0); ALT/SGPT 51 U/L (21-72); AST/SGOT 60 U/L (17-59); BLOOD UREA NITROGEN 15 mg/dl (9-20); CALCIUM 10.3 mg/dL (8.4-10.2); GFR NON-AFRICAN AMERICAN > 60; LIPASE 135 U/L (23-300)
[2018-08-23 00:13] LABS: INR 0.9
[2018-08-23 00:16] LABS: PARTIAL THROMBOPLASTIN TIME 28.5 Seconds (25.6-37.1)
[2018-08-23 00:37] LABS: PROTHROMBIN TIME 9.6 Seconds (9.8-13.1)
[2018-08-23 01:59] LABS: LYMPHOCYTE 9 % (20-50); MONOCYTE 5 % (0-10); NEUTROPHIL 85 % (42-75); PLATELET ESTIMATE NORMAL (NORMAL); REACTIVE LYMPHOCYTES 1 % (0-0); TOTAL CELLS COUNTED 100
[2018-08-23 05:44] VITALS: BP 135/95; PULSE 87; RESP 18; TEMP 99.3; O2SAT 98
--- NOTE | 2018-08-23 17:00 | CARD ---
APPROVED REPORT Date of service: 08/23/2018 EKG Measurement Heart [id number] <Conclusion> Normal sinus rhythm Left axis deviation Abnormal ECG
== END 2018-08-23 06:16 | disposition home or self-care (01) ==
LOC: H.ER 22:21
DX: F10.239 Alcohol dependence with withdrawal, unspecified (principal); R11.10 Vomiting, unspecified
CPT/HCPCS: 80053; 82948; 83690; 85025; 85610; 85730; 86850; 86900; 93005; 96374; 96375; 99284; C9113; G0480; J2060; J2765; J3411; J7030; J7042